=== PATIENT | female | born 1985 | race Caucasian/White ===

== ENCOUNTER 2016-07-02 09:19 | Emergency (ER) | payer OTHER ==
[~2016-07-02] VITALS: Ht 165.1 cm; Wt 52.2 kg
[2016-07-02 09:20] VITALS: TEMP 36.9; Ht 165.1 cm; Wt 52.2 kg
[2016-07-02] MEDS ORDERED: ONDANSETRON INJ 2 MG/ML 2 ML VIAL IV STA (09:37)
[2016-07-02] MEDS ORDERED: GI COCKTAIL PO STA (09:37)
[2016-07-02] MEDS ORDERED: KETOROLAC TROMETHAMINE 30 MG/ML VIAL IV STA (09:37)
[2016-07-02] MEDS ORDERED: SODIUM CHLORIDE 0.9% 1000ML 1,000 ML IV STA (09:37)
[2016-07-02] MEDS ORDERED: IBUP-1050 PO (09:53)
[2016-07-02] MEDS ORDERED: LIDOCAINE HCL 2% VISC SOLN 20 ML UDC ONE (09:56)
[2016-07-02] MEDS ORDERED: ALUMINUM/MAGNESIUM SUSP 30 ML UDC ONE (09:56)
[2016-07-02 10:14] LABS: BASO % 0.2 %; BASO ABS # 0.02 K/uL (0-0.2); COMPLETE YES; EOS % 1.1 %; HEMATOCRIT 38.9 % (37-47); IG% 0.1 %; LYMPH % 21.7 %; LYMPH ABS # 1.95 K/uL (1.2-3.4); MEAN CELL VOLUME 84.2 fL (80-100); MEAN CORPUSCULAR HEMOGLOBIN 27.9 pg (25-34); MEAN CORPUSCULAR HGB CONC 33.2 g/dl (32-36); MEAN PLATELET VOLUME 10.8 fL (7.4-10.4); NEUT % 67.9 %; PLATELET COUNT 227 K/uL (130-400); RED BLOOD COUNT 4.62 M/uL (4.2-5.4); WHITE BLOOD COUNT 8.98 K/uL (4.8-10.8)
[2016-07-02 10:32] LABS: URINE APPEARANCE CLEAR (CLEAR); URINE BILIRUBIN NEG (NEG); URINE COLOR YELLOW; URINE EPITHELIAL CELL AUTO >30 /lpf (0-5); URINE NITRITE NEG (NEG); URINE SPECIFIC GRAVITY 1.015 (1.000-1.030); UROBILINOGEN NEG (NEG); ZZUR CULT IF INDIC CLEAN CATCH YES
[2016-07-02 10:34] LABS: MANUAL MICROSCOPIC REQUIRED? NO; REVIEW REQ? YES
[2016-07-02 10:37] LABS: BUN/CREATININE RATIO 6.9 (10-20); CREATININE 0.97 mg/dl (0.60-1.20); POTASSIUM 4.1 mmol/L (3.5-5.1)
--- NOTE | 2016-07-02 12:30 | DIAGNOSTIC IMAGING REPORT ---
ABDOMINAL ULTRASOUND, RIGHT UPPER QUADRANT HISTORY: ruq/epigastric pain . COMPARISON: None. FINDINGS: Pancreas: The pancreas demonstrates a normal echotexture. Liver: Unremarkable. Gallbladder: No gallbladder wall thickening. No gallstones. CBD: 5 mm. Right kidney: No hydronephrosis. IMPRESSION: No significant abnormality identified within the right upper quadrant. Electronically signed by: Noam Groves M.D. 07/02/2016 12:29 PM Dictated Date/Time: 07/02/2016 12:28 PM
--- NOTE | 2016-07-02 12:48 | DIAGNOSTIC IMAGING REPORT ---
ABDOMEN 2VIEW W/PA CHEST RTN CLINICAL HISTORY: epigastric pain COMPARISON STUDY: No previous studies for comparison. FINDINGS: The soft tissues, psoas shadows, renal outlines and intestinal gas pattern appear normal. There is no evidence for bowel obstruction. There is no evidence for free intraperitoneal air. No abnormal abdominal calcifications are seen. A frontal view of the chest was performed and is unremarkable. IMPRESSION: Normal study. Electronically signed by: Rosas Cardona M.D. 07/02/2016 12:47 PM Dictated Date/Time: 07/02/2016 12:46 PM
[2016-07-02 13:32] VITALS: BP 125/76; PULSE 76; O2SAT 100
[2016-07-02] MEDS ORDERED: FAMO20TA11 PO (13:39)
--- NOTE | 2016-07-02 18:51 | EMERGENCY ROOM VISIT NOTE ---
History Report prepared by Evelyn: Sharita Orozco Under the Supervision of: Dr. Ritesh Chen D.O. First contact with patient: 09:26 Chief Complaint: ABDOMINAL PAIN Stated Complaint: SEVERE STOMACH PAIN Nursing Triage Summary: pt c/o upper abd pain started lats night at 2200. pain increasing . feels nauseated no vomiting . had diarrhea 3 days ago History of Present Illness The patient is a 31 year old female who presents to the Emergency Room with complaints of persistent epigastric abdominal pain that began last evening around 2200 last evening. She currently rates her discomfort as an 8/10 in severity. The patient states that when her pain began last evening she thought she was just hungry so she ate, but states that her pain worsened. She states that when she woke this morning she noticed nausea and heart burn. The patient states that she has a history of H Pylori diagnosed by Dr. Armendariz. She states that two years ago she had an endoscopy and a bowel sample that revealed the H Pylori. The patient states that the H Pylori was only sensitive to amoxicillin and penicillins, and she notes that she is allergic to both those medications. She states that she has a history of a tubal ligation, laparoscopy , and endometriosis. The patient states that her pain is worsened with lying down and alleviated with movement. She notes that she has been taking Ibuprofen for her discomfort, noting that she typically takes it with her migraines. The patient denies any history of an appendectomy or cholecystectomy. She notes a recent runny nose. Pt denies headache, change in vision, fevers, chest pain, shortness of breath, vomiting, diarrhea, pain with urination, and melena. Source of History: patient Onset: 2200 last evening Position: abdomen (epigastric) Symptom Intensity: 8/10 Timing: other (persistent) Modifying Factors (Worsening): eating, other (lying flat) Modifying Factors (Relieving): movement Associated Symptoms: + nausea Review of Systems See HPI for pertinent positives & negatives. A total of 10 systems reviewed and were otherwise negative. Past Medical & Surgical Medical Problems: (1) Asthma (2) Endometriosis (3) H. pylori infection Surgical Problems: (1) S/P laparoscopy (2) S/P tubal ligation Family History No pertinent family history stated. Social History Smoking Status: Current Every Day Smoker Alcohol Use: none Marital Status: Housing Status: lives with family Occupation Status: unemployed Current/Historical Medications Scheduled Famotidine (Pepcid), 20 MG PO DAILY Ibuprofen (Advil), 600 MG PO DAILY Allergies Coded Allergies: Amoxicillin (Verified Allergy, Severe, hives, hard to breath, 07/02/16) Barium (Verified Allergy, Intermediate, KIDNEY'S BURNED, 07/02/16) Penicillins (Verified Allergy, Unknown, 07/02/16) Physical Exam Vital Signs Date Time Temp Pulse Resp B/P Pulse Ox O2 Delivery O2 Flow Rate FiO2 07/02/16 13:32 76 20 125/76 100 07/02/16 12:48 64 20 121/82 100 Room Air 07/02/16 11:08 68 20 105/62 98 Nasal Cannula 2.0 07/02/16 09:20 36.9 80 18 132/91 99 Room Air Physical Exam GENERAL: Sitting up in bed, disheveled, nontoxic. EYE EXAM: normal conjunctiva. OROPHARYNX: no exudate, no erythema, lips, buccal mucosa, and tongue normal and mucous membranes are moist. No front upper incisors present. NECK: supple, no nuchal rigidity, no adenopathy, non-tender LUNGS: Clear to auscultation. Normal chest wall mechanics HEART: no murmurs, S1 normal and S2 normal ABDOMEN: Tender to palpation in the epigastric region. abdomen soft, normo- active bowel sounds, no masses, no rebound or guarding. BACK: Back is symmetrical on inspection and there is no deformity, no midline tenderness, no CVA tenderness. SKIN: no rashes and no bruising UPPER EXTREMITIES: upper extremities are grossly normal. LOWER EXTREMITIES: No pitting edema. NEURO EXAM: Normal sensorium, cranial nerves II-XII grossly intact, normal speech, no gross weakness of arms, no gross weakness of legs. Medical Decision & Procedures ER Provider Diagnostic Interpretation: Xray results per the radiologist and my interpretation. Other results have been interpreted by the radiologist and reviewed by me. ABDOMINAL ULTRASOUND, RIGHT UPPER QUADRANT HISTORY: ruq/epigastric pain . COMPARISON: None. FINDINGS: Pancreas: The pancreas demonstrates a normal echotexture. Liver: Unremarkable. Gallbladder: No gallbladder wall thickening. No gallstones. CBD: 5 mm. Right kidney: No hydronephrosis. IMPRESSION: No significant abnormality identified within the right upper quadrant. Electronically signed by: Noam Groves M.D. 07/02/2016 12:29 PM Dictated Date/Time: 07/02/2016 12:28 PM ABDOMEN 2VIEW W/PA CHEST RTN CLINICAL HISTORY: epigastric pain COMPARISON STUDY: No previous studies for comparison. FINDINGS: The soft tissues, psoas shadows, renal outlines and intestinal gas pattern appear normal. There is no evidence for bowel obstruction. There is no evidence for free intraperitoneal air. No abnormal abdominal calcifications are seen. A frontal view of the chest was performed and is unremarkable. IMPRESSION: Normal study. Electronically signed by: Rosas Cardona M.D. 07/02/2016 12:47 PM Dictated Date/Time: 07/02/2016 12:46 PM Laboratory Results 07/02/16 09:55 Red Blood Count 4.62, Mean Corpuscular Volume 84.2, Mean Corpuscular Hemoglobin 27.9, Mean Corpuscular Hemoglobin Concent 33.2, Mean Platelet Volume 10.8, Neutrophils (%) (Auto) 67.9, Lymphocytes (%) (Auto) 21.7, Monocytes (%) (Auto) 9.0, Eosinophils (%) (Auto) 1.1, Basophils (%) (Auto) 0.2, Neutrophils # (Auto) 6.09, Lymphocytes # (Auto) 1.95, Monocytes # (Auto) 0.81, Eosinophils # (Auto) 0.10, Basophils # (Auto) 0.02 07/02/16 09:55 Test 07/02/16 09:50 07/02/16 09:55 Urine Color YELLOW Urine Appearance CLEAR (CLEAR) Urine pH 5.0 (4.5-7.5) Urine Specific [place] 1.015 (1.000-1.030) Urine Protein NEG (NEG) Urine Glucose (UA) NEG (NEG) Urine Ketones NEG (NEG) Urine Occult Blood NEG (NEG) Urine Nitrite NEG (NEG) Urine Bilirubin NEG (NEG) Urine Urobilinogen NEG (NEG) Urine Leukocyte Esterase NEG (NEG) Urine WBC (Auto) 1-5 /hpf (0-5) Urine RBC (Auto) 0-4 /hpf (0-4) Urine Hyaline Casts (Auto) 1-5 /lpf (0-5) Urine Epithelial Cells (Auto) >30 /lpf (0-5) Urine Bacteria (Auto) 1+ (NEG) Urine Test NEG (NEG) White Blood Count 8.98 K/uL (4.8-10.8) Red Blood Count 4.62 M/uL (4.2-5.4) Hemoglobin 12.9 g/dL (12.0-16.0) Hematocrit 38.9 % (37-47) Mean Corpuscular Volume 84.2 fL (80-100) Mean Corpuscular Hemoglobin 27.9 pg (25-34) Mean Corpuscular Hemoglobin Concent 33.2 g/dl (32-36) Platelet Count 227 K/uL (130-400) Mean Platelet Volume 10.8 fL (7.4-10.4) Neutrophils (%) (Auto) 67.9 % Lymphocytes (%) (Auto) 21.7 % Monocytes (%) (Auto) 9.0 % Eosinophils (%) (Auto) 1.1 % Basophils (%) (Auto) 0.2 % Neutrophils # (Auto) 6.09 K/uL (1.4-6.5) Lymphocytes # (Auto) 1.95 K/uL (1.2-3.4) Monocytes # (Auto) 0.81 K/uL (0.11-0.59) Eosinophils # (Auto) 0.10 K/uL (0-0.5) Basophils # (Auto) 0.02 K/uL (0-0.2) RDW Standard Deviation 43.5 fL (36.4-46.3) RDW Coefficient of Variation 14.1 % (11.5-14.5) Immature Granulocyte % (Auto) 0.1 % Immature Granulocyte # (Auto) 0.01 K/uL (0.00-0.02) Anion Gap 9.0 mmol/L (3-11) Est Creatinine Clear Calc Drug Dose 69.2 ml/min Estimated GFR () 90.2 Estimated GFR (Non- 77.8 BUN/Creatinine Ratio 6.9 (10-20) Calcium Level 9.0 mg/dl (8.5-10.1) Total Bilirubin 0.4 mg/dl (0.2-1) Direct Bilirubin 0.1 mg/dl (0-0.2) Aspartate Amino Transf (AST/SGOT) 10 U/L (15-37) Alanine Aminotransferase (ALT/SGPT) 17 U/L (12-78) Alkaline Phosphatase 55 U/L (45-117) Total Protein 7.0 gm/dl (6.4-8.2) Albumin 4.0 gm/dl (3.4-5.0) Lipase 106 U/L (73-393) Laboratory results per my review. Medications Administered Medications (Trade) Dose Ordered Sig/Mimi Route Start Time Stop Time Status Last Admin Dose Admin Ketorolac Tromethamine 30 mg 30 mg NOW STAT IV 07/02/16 09:37 07/02/16 14:20 DC 07/02/16 10:00 30 MG Sodium Chloride (Nss 1000ml) 1,000 ml @ 999 mls/hr Q1H1M STAT IV 07/02/16 09:37 07/02/16 14:20 DC 07/02/16 09:59 999 MLS/HR Ondansetron HCl (Zofran Inj) 4 mg NOW STAT IV 07/02/16 09:37 07/02/16 14:20 DC 07/02/16 10:00 4 MG Lidocaine HCl (Viscous Lidocaine 2% Soln) 20 ml STK-MED ONCE .ROUTE 07/02/16 09:56 07/02/16 09:58 DC 07/02/16 10:00 20 ML Al Hydroxide/Mg Hydroxide (Maalox Susp) 30 ml STK-MED ONCE .ROUTE 07/02/16 09:56 07/02/16 09:58 DC 07/02/16 10:00 30 ML ED Course ED COURSE: Vital signs were reviewed and showed normal vitals The patients medical record was reviewed The above diagnostic studies were performed and reviewed. ED treatments and interventions as stated above. 0930: The patient was evaluated in room C4. A complete history and physical examination was performed. 0937: Ordered Zofran Inj 4 mg IV, Sodium Chloride 1000 ml @ 999 mls/hr IV, Toradol Inj 30 mg IV, GI cocktail 30 ml PO. 1128: I reevaluated the patient and she is feeling better. 1341: Upon reevaluation, the patient is resting comfortably.I discussed my findings with the patient and she understands and agrees with the treatment plan. Based on the patients age, coexisting illnesses, exam and lab findings the decision to treat as an outpatient was made. The patient remained stable while under my care. The patient appeared well at the time of discharge. Medical Decision Differential diagnoses includes but is not limited to gastritis, peptic ulcer disease, GERD, gallbladder disease, pancreatitis, small bowel obstruction, acute coronary syndrome, pericarditis, ischemic bowel, irritable bowel disease, irritable bowel syndrome, appendicitis, diverticulitis, malignancy, hernia, urinary tract infection, torsion, /ectopic (if female), perforation, trauma, infectious. Patient is a 31-year-old female who presents the ER for severe epigastric abdominal pain. She notes that this started last night middle of her stomach. She missed a history of H. pylori. Labs show no significant leukocytosis or anemia. BMP along with LFTs, bilirubin and lipase are unremarkable. UA was unremarkable. Urine is negative. Patient was given a GI cocktail and had significant improvement of her symptoms. She is given Toradol, normal saline and Zofran. Abdominal exam was unremarkable. Also the right upper quadrant was negative. Obstruction series was normal. With the resolution of her symptoms she was discharged on Pepcid and instructed follow with her primary care doctor. Discussed with Pt concerning signs and symptoms to watch out for. Pt was instructed to follow up with their PCP and discussed with the patient their option to return to the ED at anytime for persistent or worsening symptoms. The appropriate anticipatory guidance and out-patient management, including indications for return to the emergency department, were explained at length to the patient and understood. Impression Primary Impression: Gastritis Scribe Attestation The scribe's documentation has been prepared under my direction and personally reviewed by me in its entirety. I confirm that the note above accurately reflects all work, treatment, procedures, and medical decision making performed by me. Departure Information Dispostion Home / Self-Care Prescriptions Famotidine (Pepcid) 20 Mg Tab 20 MG PO DAILY, #30 TAB Prov: Ritesh Chen, DO 07/02/16 Referrals No Doctor, Assigned (PCP) Forms Call Back Authorization, HOME CARE DOCUMENTATION FORM, IMPORTANT VISIT INFORMATION Patient Instructions ED PUD Vs Gastritis, [facility] Additional Instructions Please follow up with your primary care doctor with in the next 24 hours. Any worsening of your symptoms, please return to the ED immediately. His includes any worsening pain, persistent nausea vomiting, bloody stool, dark tarry stools , or any other concerning signs or symptoms from your standpoint. Please take Tylenol as needed for pain. Please take Pepcid once daily as this will help with her likely gastritis. Problem Qualifiers Primary Impression: Gastritis Gastritis type: unspecified gastritis Chronicity: unspecified Gastritis bleeding: without bleeding Qualified Codes: K29.70 - Gastritis, unspecified, without bleeding
--- NOTE | 2016-07-04 13:35 | Pharmacy Progress Note ---
ED Pharmacist Culture FollowUp Date of Service: Jul 04, 2016. Patient's urine culture from 07/02 is growing garnerella-bianchi bacilli. A urine cx is not reliable for dx of bacteria vaginosis. Patient did not have c/o dysuria. UA was negative for infection. Urine cx is not reliable for dx of bacterial vaginitis. Patient had not c/o vaginal discharge or odor during ER visit. No dx of UTI was made while in ER and no abx was given on discharge from ER. No action required as this likely reflects vaginal dawit.
== END 2016-07-02 13:49 | disposition home or self-care (01) ==
LOC: C.EDB 09:20 → C.EDC 13:49
DX: K29.70 Gastritis, unspecified, without bleeding (principal); J45.909 Unspecified asthma, uncomplicated; F17.200 Nicotine dependence, unspecified, uncomplicated